=== PATIENT | male | born 1980 | race Caucasian/White ===

== ENCOUNTER 2021-02-15 16:46 | Emergency (ER) | payer OTHER, SELFPAY ==
[2021-02-15] VITALS (11 sets, daily range): BP systolic 111–141; BP diastolic 75–119; PULSE 72–98; RESP 11–19; O2SAT 95–98
--- NOTE | 2021-02-15 16:53 | DI.RAD_ITS ---
Exam(s) XR SHOULDER LT COMPLETE 2+V EXAM: XR SHOULDER LT COMPLETE 2+V CLINICAL HISTORY: Shoulder deformity. TECHNIQUE: 2D digital imaging was performed. COMPARISON: No exams were available for comparison FINDINGS: There is anterior dislocation of the humeral head relative to the glenoid fossa. No obvious fracture . AC joint appears unremarkable. Bone density normal. IMPRESSION: DATA REPOSITORY: RADIATION DOSE DELIVERED:
[2021-02-15] MEDS: HYDROmorphone 2 MG/ML VIAL 1 MG IVP (17:00)
[2021-02-15] MEDS: Ondansetron 4 MG/2 ML VIAL IVP (17:00)
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
[2021-02-15] MEDS: Normal Saline 1,000 ML 150 ML IV (17:06)
[2021-02-15] MEDS: HYDROmorphone 2 MG/ML VIAL 0.5 MG IVP (17:21)
[2021-02-15 17:28] LABS: Abs Immature Grans 0.05 10^3/uL (0.0-0.06); Absolute Basophil Count 0.03 10^3/uL (0.0-0.2); Absolute Lymphocyte Count 2.44 10^3/uL (1.2-3.4); Absolute Monocyte Count 0.63 10^3/uL (0.1-0.8); Basophils % 0.3; Eosinophils % 1.7; HCT 42.9 % (40.0-50.0); HGB 14.8 g/dL (13.5-17.5); Immature Grans % 0.4; Lymphocytes % 21.2; MCH 30.6 pg (27.0-33.0); MCHC 34.5 % (32.0-36.0); MCV 88.6 fL (80-95); MPV 9.9 fL (8.0-11.0); Monocytes % 5.5; Neutrophils % 70.9; Nucleated RBC 0 %; Platelet Count 308 10^3/uL (130-400); RBC 4.84 10^6/uL (4.36-5.78); RDW 12.4 % (11.8-14.1); RDW-SD 40.2 fL; WBC 11.53 10^3/uL (4.4-10.8)
[2021-02-15 17:29] LABS: Absolute Neutrophil Count 8.17 10^3/uL (1.2-6.7)
[2021-02-15 17:57] LABS: ALT 62 U/L (16-63); AST 29 U/L (15-37); Albumin 3.6 g/dL (3.4-5.0); Alkaline Phosphatase 77 U/L (46-116); BUN 16 mg/dL (7-18); Bilirubin, Total 0.6 mg/dL (0.2-1.0); CREATININE 1.3 mg/dL (0.70-1.30); Chloride 105 mmol/L (98-107); Glucose 173 mg/dL (74-106); Lipase 76 U/L (73-393); Potassium 3.8 mmol/L (3.5-5.1); Sodium 142 mmol/L (136-145); Total Protein 7.3 g/dL (6.4-8.2)
--- NOTE | 2021-02-15 18:00 | DI.RAD_ITS ---
Exam(s) XR SHOULDER LT 1V EXAM: XR SHOULDER LT 1V CLINICAL HISTORY: Post reduction. TECHNIQUE: 2D digital imaging was performed. COMPARISON: CR XR SHOULDER LT COMPLETE 2+V from 02/15/2021 FINDINGS: There is successful realignment of the glenohumeral joint. Very subtle calcification noted at the inferior level of the osseous glenoid may indicate an element of [place] injury. Appropriate follow-up recommended. AC joint appears unremarkable. Bone density is normal. No osseous lesions evident. IMPRESSION: DATA REPOSITORY: RADIATION DOSE DELIVERED:
[2021-02-15] MEDS: Cyclobenzaprine 10 MG TAB, 3 TABS/BTL PO (18:40)
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
--- NOTE | 2021-02-15 19:17 | DI.VRAD_ITS ---
PROCEDURE INFORMATION: Exam: XR Left Shoulder Exam date and time: 02/15/2021 6:04 PM Age: 40 years old Clinical indication: Pain; Shoulder; Left; Patient HX: Post reduction TECHNIQUE: Imaging protocol: XR Left shoulder. Views: 1 view. COMPARISON: CR XR SHOULDER LT COMPLETE 2+V 02/15/2021 5:31 PM FINDINGS: Bones/joints: There has been successful reduction of the anterior subcoracoid left shoulder dislocation. No acute fracture is identified. The acromioclavicular joint is normal. Soft tissues: There are no soft tissue calcifications. IMPRESSION: Successful reduction of the anterior subcoracoid left shoulder dislocation. Dictated and Authenticated by: Carrillo Gerardo MD. Ordering:FRANKIE Magallon MD
== END 2021-02-15 19:05 | disposition home or self-care (01) ==
PROVIDERS: Emergency Provider Registered Nurse Emergency
DX: S43.085A Other dislocation of left shoulder joint, initial encounter (principal); V19.3XXA Pedal cyclist (driver) (passenger) injured in unspecified nontraffic accident, initial encounter
CPT/HCPCS: 23650; 36415; 80053; 83690; 90471; 96361; 96374; 96375; 96376; 99284; 73020; 73030; 85025; 99283; J2405